=== PATIENT | female | born 1955 | race Caucasian/White ===

== ENCOUNTER → 2016-05-28 | Outpatient (CLI) | payer OTHER | LOC: BMCIMAGING 09:42 | DX: Z12.31 Encounter for screening mammogram for malignant neoplasm of breast (principal); Z80.3 Family history of malignant neoplasm of breast | CPT/HCPCS: G0202 ==

== ENCOUNTER → 2016-08-22 | Outpatient (CLI) | payer OTHER | LOC: BMCIMAGING 10:20 | PROVIDERS: ATTEND Podiatrist Foot & Ankle Surgery | DX: S90.32XA Contusion of left foot, initial encounter (principal) ==

== ENCOUNTER → 2017-08-04 | Outpatient (CLI) | payer OTHER | LOC: BMCIMAGING 15:16 | PROVIDERS: ATTEND Internal Medicine | DX: R05 Cough (principal) ==

== ENCOUNTER → 2017-09-08 | Outpatient (CLI) | payer OTHER | LOC: BMCIMAGING 15:16 | PROVIDERS: ATTEND Internal Medicine | DX: Z12.31 Encounter for screening mammogram for malignant neoplasm of breast (principal) ==